=== PATIENT | female | born 1990 | race Caucasian/White ===

== ENCOUNTER 2017-09-06 22:37 | Emergency (ER) | payer MEDICAID, OTHER, SELFPAY ==
[~2017-09-06] VITALS: Ht 149.9 cm; Wt 58.4 kg
[2017-09-06 22:44] VITALS: BP 155/98
[2017-09-06] MEDS ORDERED: HYDROcodone/APAP 5/325 TABLET ONE (23:08)
[2017-09-06] MEDS ORDERED: HYDROcodone/APAP 5/325 TABLET PO ONE (23:30)
[2017-09-06] MEDS ORDERED: LIDOCAINE 1%, 20ML ONE (23:45)
[2017-09-07] MEDS ORDERED: LIDOCAINE 1%, 20ML INFIL ONE
== END 2017-09-07 00:24 | disposition home or self-care (01) ==
LOC: ED 23:59
DX: S01.81XA Laceration without foreign body of other part of head, initial encounter (principal); W21.04XA Struck by golf ball, initial encounter; Y93.89 Activity, other specified; Y92.098 Other place in other non-institutional residence as the place of occurrence of the external cause; Y99.8 Other external cause status
CPT/HCPCS: 12013; 70450

== ENCOUNTER 2019-02-17 15:36 | Emergency (ER) | payer SELFPAY ==
[~2019-02-17] VITALS: Ht 149.9 cm; Wt 69.1 kg
--- NOTE | 2019-02-17 16:17 | NUR ---
PT REPORTS HAVING VAGINAL ITCHING AND BURNING FOR 5 DAYS. PT IS ALERT, ORIENTED, WITH NAD. PT IS CONNECTED TO THE MONITOR. CALL LIGHT WIViVuIN REACH.
--- NOTE | 2019-02-17 16:31 | NUR ---
ASSIST MD WITH VAG EXAM.
[2019-02-17 17:26] LABS: CLUE CELLS NONE SEEN (NONE SEEN); WET PREP WBCS MODERATE (FEW)
--- NOTE | 2019-02-17 17:40 | NUR ---
PT IS RESTING IN BED WATCHING TV, RESPIRATIONS EQUAL AND NON LABORED. NAD. PT IS CONNECTED TO THE MONIOR. CALL LIGHT WITHIN REACH.
--- NOTE | 2019-02-17 18:48 | NUR ---
PT IS RESTING IN BED WATCHING TV, RESPIRATIONS EQUAL AND NON LABORED. NAD. PT IS CONNECTED TO THE MONIOR. CALL LIGHT WITHIN REACH.
--- NOTE | 2019-02-17 18:52 | NUR ---
REPORT GIVEN TO LALITHA ISLAS.
--- NOTE | 2019-02-17 19:00 | NUR ---
REPORT RECEIVED FROM HANDY ISLAS.
--- NOTE | 2019-02-17 19:12 | NUR ---
EDMD AT BEDSIDE TO EXPLAIN ALL RESULTS AT THIS TIME.
[2019-02-17 19:30] VITALS: BP 133/98
--- NOTE | 2019-02-17 19:31 | NUR ---
PT GIVEN DC INSTRUCTIONS. PT AMB TO DC WITH STEADY GAIT. NO ACUTE DISTRESS AT DC.
== END 2019-02-17 19:32 | disposition home or self-care (01) ==
LOC: ED 19:18
DX: L29.2 Pruritus vulvae (principal); F17.210 Nicotine dependence, cigarettes, uncomplicated
CPT/HCPCS: 81025; 87210; 87491; 87591; 87808; 99283